=== PATIENT | male | born 1945 | race Caucasian/White ===

== ENCOUNTER → 2021-09-10 | Outpatient (CLI) | payer OTHER ==
[~2021-09-10] MED LIST: ATOR40TA PO; CELE200 PO; CIPR500 PO; CYAN1000 PO; FINA5 PO; FISH1000 PO; LISI20 PO; METR500 PO; OMEP20ER PO; OXYACE5T PO; PROM25 PO; TIOT18 IH; UBID100 PO
[2021-09-11 15:07] LABS: Creatinine, Urine Random 91.1 mg/dL (27.00-270.00); Microalb/Creat Ratio UR, Rand 7.344 mg/g (0.000-30.000); Microalbumin, Random Urine 6.69 mg/L (0.000-20.000)
[2021-09-12 09:56] LABS: Stool Occult Bld Immuno 1 Negative (NEGATIVE)
== END | disposition home or self-care (01) ==
LOC: LAB SHORT 15:30
PROVIDERS: Physician Assistant
DX: Z12.11 Encounter for screening for malignant neoplasm of colon (principal); N18.32 Chronic kidney disease, stage 3b
CPT/HCPCS: 82043; 82274; 82570

== ENCOUNTER → 2022-05-31 | Outpatient (CLI) | payer OTHER | END | disposition home or self-care (01) | LOC: LAB SHORT 09:12 | DX: D04.4 Carcinoma in situ of skin of scalp and neck (principal); L82.1 Other seborrheic keratosis | CPT/HCPCS: 88305 ==

== ENCOUNTER → 2022-09-13 | Outpatient (CLI) | payer OTHER | END | disposition home or self-care (01) | LOC: PLD 07:54 → LAB SHORT 07:54 → LAB 07:54 | DX: C06.0 Malignant neoplasm of cheek mucosa (principal) | CPT/HCPCS: 88305 ==

== ENCOUNTER → 2022-09-24 | Outpatient (CLI) | payer OTHER | END | disposition home or self-care (01) | LOC: LAB SHORT 09:50 | DX: R50.9 Fever, unspecified (principal) | CPT/HCPCS: 87807 ==

== ENCOUNTER → 2023-02-05 | Outpatient (CLI) | payer OTHER | END | disposition home or self-care (01) | LOC: LAB SHORT 08:25 → PLD 08:25 | DX: C44.712 Basal cell carcinoma of skin of right lower limb, including hip (principal) | CPT/HCPCS: 88305 ==

== ENCOUNTER 2025-03-17 11:29 | Day surgery (SDC) | payer OTHER ==
[~2025-03-17] VITALS: Ht 175.3 cm; Wt 68.2 kg
[2025-03-17] MEDS ORDERED: EPLE25 (12:13)
[2025-03-17] MEDS ORDERED: FURO20 (12:13)
[2025-03-17] MEDS ORDERED: ALBU90OI6 (12:14)
[2025-03-17] MEDS ORDERED: propofoL 20 ML IV ONE ×2 (12:14→14:20)
[2025-03-17] MEDS ORDERED: FentaNYL Citrate 50 MCG/ML 2 ML Injection ONE (12:15)
[2025-03-17] MEDS ORDERED: Midazolam HCl 1MG / ML 2ML Vial ONE (12:15)
[2025-03-17] MEDS ORDERED: Rocuronium Bromide 10 MG/ML 5ML Injection IV ONE ×2 (12:16→14:36)
[2025-03-17] MEDS ORDERED: TRELEGY ELLIPT1 EACH (12:17)
[2025-03-17] MEDS ORDERED: Calcium Carbon500 MG (12:18)
[2025-03-17] MEDS ORDERED: TAMS.4ER (12:18)
[2025-03-17] MEDS ORDERED: BUPR75 (12:18)
[2025-03-17] MEDS ORDERED: Lactated Ringer's 1,000 ML IV ONE (12:30)
[2025-03-17] MEDS ORDERED: EPINEPhrine HCl 1 MG / ML 30ML Vial ONE (13:28)
[2025-03-17] MEDS ORDERED: Lidocaine 2%-Epineph 1:100000 20 ML MDV ONE (13:28)
[2025-03-17] MEDS ORDERED: Lidocaine 2%-Epineph 1:200000 20 ML SDV ONE (13:30)
[2025-03-17] MEDS ORDERED: EPINEPhrine HCl 1 MG/ML 1ML Amp ONE ×2 (13:39→14:13)
[2025-03-17] MEDS ORDERED: Dexamethasone Sod Phos 10 MG/ML 1ML VIAL ONE (14:36)
[2025-03-17] MEDS ORDERED: Ondansetron HCl 2 MG / ML 2ML Vial ONE (14:36)
[2025-03-17] MEDS ORDERED: Sugammadex Sodium 200 MG/2ML SDV (100 MG/ML) ONE (14:45)
--- NOTE | 2025-03-17 15:21 | NUR ---
03/17/25 1521 Itzel Torres 1510 - HANDOFF REC'D FROM ANESTH & GRINDER OUTSIDE DIAMETER. SUCTION FOR EXCESSIVE SECRETIONS. SLURRED SPEECH R/T DENTURES OUT, ANESTH AWARE. SMALL ABRASION TO R LOWER LIP NOTED. 1520 - PT A&O, INTERACTING APPROPRIATELY. PAIN 11/30
--- NOTE | 2025-03-17 16:05 | NUR ---
03/17/25 1605 Itzel Torres 1545 - HANDOFF TO RAVI ZHENG IN [facility] FOR BREAK COVERAGE 1600 - RESUMED CARE OF PT. PT VOIDED 150 ML YELLOW URINE
[2025-03-17] MEDS ORDERED: OxyCODONE HCL 5 MG TAB ONE (16:20)
[2025-03-17 16:21] VITALS: BP 124/56
== END 2025-03-17 16:54 | disposition home or self-care (01) ==
LOC: ORSCSDS 11:29
PROVIDERS: Otolaryngology
PROC: 0CBT8ZX Excision of Right Vocal Cord, Via Natural or Artificial Opening Endoscopic, Diagnostic (ICD-10-PCS; principal; 2025-03-17 13:00)
DX: J38.7 Other diseases of larynx (principal); I10 Essential (primary) hypertension; J44.9 Chronic obstructive pulmonary disease, unspecified; Z87.891 Personal history of nicotine dependence; Z99.81 Dependence on supplemental oxygen; Z79.899 Other long term (current) drug therapy
CPT/HCPCS: 88305; A9270; J0171; J1100; J2250; J2405; J2704; J3010